=== PATIENT | female | born 1990 | race Caucasian/White ===

== ENCOUNTER 2017-08-16 09:43 | Emergency (ER) | payer SELFPAY ==
[2017-08-16 10:00] VITALS: BP 124/82
[2017-08-16] MEDS ORDERED: Lidocaine 1% 50 ML MDV INJECT ONE (11:20)
--- NOTE | 2017-08-16 13:58 | EDM.PDOC ---
ED HPI GENERAL MEDICAL PROBLEM - General Chief Complaint: Upper Extremity Injury/Pain Stated Complaint: HAND SWOLLEN Time Seen by Provider: 08/16/17 10:13 Source of Information: Reports: Patient, RN Notes Reviewed - History of Present Illness INITIAL COMMENTS - FREE TEXT/NARRATIVE: 26-year-old female comes in with area of swelling, discomfort, erythema dorsum of right hand. She states that she was doing some fencing about a week ago got a large sliver of wood that punctured across the dorsum of the right hand. Her did pull that out. They think they got it all but have no way of knowing for sure. The swelling never did completely go away. Now over the last few days the swelling is been getting worse, also increasing erythema and discomfort. 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 History - Tobacco Use Smoking Status *Q: Never Smoker - Caffeine Use Caffeine Use: Reports: Coffee, Energy Drinks, Soda, Tea - Recreational Drug Use Recreational Drug Use: No Review of Systems - Review of Systems Review Of Systems: See Below Constitutional: Denies: Chills, Fever Mouth/Throat: Reports: No Symptoms Respiratory: Denies: Shortness of Breath Cardiovascular: Denies: Chest Pain GI/Abdominal: Denies: Nausea, Vomiting Musculoskeletal: Reports: Other (pain, swelling, erythema dorsum of right hand) Neurological: Denies: Numbness, Tingling ED EXAM, GENERAL - Physical Exam Exam: See Below General Appearance: Alert, No Apparent Distress Head: Atraumatic Neck: Supple Respiratory/Chest: No Respiratory Distress Extremities: Redness (visit linear area of redness and swelling along with moderate tenderness across the dorsum of her right hand, length about 1 inch, about 1/2 inch away from the entrance wound that has now almost completely healed, no drainage at this time) Neurological: Alert, Oriented, No Motor/Sensory Deficits Skin Exam: Warm, Dry, Normal Color ED TRAUMA EXTREMITY PROCEDURES - I&D Site: dorsum of right hand Skin Prep: Providone-Iodine (Betadine) Local Anesthesia: Lidocaine: 1% Plain Area Incised With: 15 Blade Drainage: Bloody, Moderate Amount, Other (mostly bloody drainage but also there was a small amount of infected pus-looking material that did drain as well, no definite foreign body found. I did make a 2 cm laceration and did go down modera ) Course - Vital Signs Last Recorded V/S: Last Vital Signs Temp 98.1 F 08/16/17 09:57 Pulse 77 08/16/17 09:57 Resp BP 124/82 08/16/17 09:57 Pulse Ox 100 08/16/17 09:57 - Orders/Labs/Meds Orders: Active Orders 24 hr Category Date Time Status Hand Comp Min 3V Rt [CR] Stat Exams 08/16/17 10:32 Taken Meds: Medications Discontinued Medications Generic Name Dose Route Start Last Admin Trade Name Pattie PRN Reason Stop Dose Admin Lidocaine HCl 50 ml 08/16/17 11:20 08/16/17 14:00 Xylocaine 1% INJECT 08/16/17 11:21 50 ml ONETIME ONE Administration - Re-Assessments/Exams Free Text/Narrative Re-Assessment/Exam: 08/16/17 15:54 I have discussed with patient option of putting her on an antibiotic giving this a chance to get better. When questioning about possibility of retained foreign body she really is quite unsure. She states the swelling never did go away, even right after time of splinter removal. She would prefer that I do open that up and have a look. She has signed appropriate consent for incision, drainage, exploration for foreign body. We did give a dose of cephalexin prior to doing this. Patient tolerated procedure well. Departure - Departure Time of Disposition: 14:20 Disposition: Home, Self-Care 01 Condition: Fair Clinical Impression: Cellulitis Qualifiers: Site of cellulitis: extremity Site of cellulitis of extremity: upper extremity Laterality: right Qualified Code(s): L03.113 - Cellulitis of right upper limb - Discharge Information Prescriptions: Cephalexin 500 mg PO Q6HR #30 capsule Instructions: Cellulitis, Adult, [id number] Referrals: PCP,None [Primary Care Provider] - Forms: ED Department Discharge Additional Instructions: laceration care instructions, cephalexin 500 mg 4 times daily for 1 week or until gone, symptoms of infection should gradually resolve, have hand rechecked if symptoms worsening in any way - My Orders Last 24 Hours: My Active Orders 08/16/17 10:32 Hand Comp Min 3V Rt [CR] Stat - Assessment/Plan Last 24 Hours: My Active Orders 08/16/17 10:32 Hand Comp Min 3V Rt [CR] Stat
--- NOTE | 2017-08-17 10:27 | CR ---
Right hand: Four views of the right hand were obtained. Comparison: No previous study. Soft tissue swelling is identified. No opaque foreign object is appreciated. No fracture, dislocation or other bony abnormality is seen. Impression: 1. Soft tissue swelling. No opaque foreign object is seen. 2. No bony abnormality is identified. Diagnostic code #2
== END 2017-08-16 14:40 | disposition home or self-care (01) ==
LOC: JD.ED 09:43 → MERGE 09:43 → JD.ED 14:40
DX: L03.113 Cellulitis of right upper limb (principal)
CPT/HCPCS: 10060; 12001; 73130-26-RT; 73130-RT; 99283-25

== ENCOUNTER 2018-02-05 18:07 | Emergency (ER) | payer SELFPAY ==
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
[2018-02-05 18:53] VITALS: BP 123/90
--- NOTE | 2018-02-06 10:02 | CT ---
CT cervical spine Technique: Multiple axial sections were obtained from above C1 inferiorly to the bottom of T2. Reconstructed sagittal and coronal images were reviewed. Comparison: No prior cervical spine imaging. Findings: Slight areas of increased density seen within the thyroid gland. Vertebral body heights and disc spaces are maintained. No fracture is seen. No bony central or bony neural foraminal stenosis is seen. No abnormal subluxation is seen on the reconstructed sagittal images. Impression: 1. Areas of increased density within the thyroid gland. Thyroid ultrasound could be obtained to further evaluate. 2. Nothing acute is seen on CT study of the cervical spine. Diagnostic code #3 Agree with preliminary report issued by [facility] ([facility] preliminary report dictated on 02/05/18, 8:00 PM Central Time)
--- NOTE | 2018-02-06 10:02 | CR ---
Thoracic spine: AP and lateral views of the thoracic spine were obtained as well as a swimmer's view. Comparison: No prior thoracic spine study. Vertebral body heights and disc spaces are maintained. Pedicles are intact. Minimal scoliosis is noted. No discrete fracture or subluxation is appreciated. Impression: 1. Minimal scoliosis. 2. No additional abnormality is appreciated on three-view thoracic spine study. Diagnostic code #2
--- NOTE | 2018-02-06 10:02 | CR ---
Lumbar spine: AP and lateral views of the lumbar spine were obtained. Comparison: No previous study. Vertebral body heights and disc spaces are maintained. Pedicles as well as transverse and spinous processes are intact. No subluxation or fracture is seen. Sacroiliac joints are within normal limits. Impression: 1. No abnormality is seen on two-view lumbar spine study. Diagnostic code #1
== END 2018-02-05 19:15 | disposition home or self-care (01) ==
LOC: JD.ED 18:07
DX: M54.2 Cervicalgia (principal); M54.6 Pain in thoracic spine; V43.53XA Car driver injured in collision with pick-up truck in traffic accident, initial encounter; Y92.410 Unspecified street and highway as the place of occurrence of the external cause
CPT/HCPCS: 72070; 72070-26; 72100; 72100-26; 72126; 72126-26; 81001; 99284; 99285-25

== ENCOUNTER 2019-01-23 16:05 | Emergency (ER) | payer BC ==
[2019-01-23 16:18] VITALS: BP 116/80
[2019-01-23] MEDS ORDERED: Lidocaine 1% 10 ML MDV INJECT ONE (17:31)
[2019-01-23] MEDS ORDERED: Bupivacaine 0.5% 10 ML SDV INJECT ONE (18:08)
--- NOTE | 2019-01-23 18:08 | EDM.PDOC ---
<Gaurang Hernández - Last Filed: 01/23/19 18:54> ED HPI GENERAL MEDICAL PROBLEM - General Chief Complaint: Laceration Stated Complaint: L INDEX FINGER LAC Time Seen by Provider: 01/23/19 17:14 - Related Data Allergies Allergy/AdvReac Type Severity Reaction Status Date / Time No Known Allergies Allergy Verified 01/23/19 16:18 Home Meds: Home Meds . [No Known Home Meds] 02/05/18 [History] ED SKIN PROCEDURES - Laceration/Wound Repair Left Lateral Distal Digit - 2nd (Index) Lac/Wound length In cm: 5 (cm) Appearance: Subcutaneous, Linear, Mildly Contaminated Distal NVT: Neuro & Vascular Intact, No Tendon Injury Anesthetic Type: Local Local Anesthesia - Bupivicaine (Marcaine): 0.5% Plain Local Anesthetic Volume: Other (6 mL) Skin Prep: Providone-Iodine (Betadine), Sterile Drape Exploration/Debridement/Repair: Minimal Debridement, Other (Wound margin approximated) Closed with: Sutures Suture Size: 4-0 # of Sutures: 7 Suture Type: Nylon Sterile Dressing Applied: Nurse Tetanus Status Addressed: Yes Complications: No Progress/Comments: Laceration approximated 5 cm Lateral second digit of left hand. Wound irrigated with NS, sterilized using iodine, and anesthetized with digital block with 7 mL bupivicaine. Margins were approximated and seven 4.0 ethylon simple sutures were used to close the wound. Hemostasis was achieved. There was minimal blood lost and no complications. Course - Vital Signs Last Recorded V/S: Last Vital Signs Temp 98.3 F 01/23/19 16:16 Pulse 93 01/23/19 16:16 Resp 16 01/23/19 16:16 BP 116/80 01/23/19 16:16 Pulse Ox 99 01/23/19 16:16 - Orders/Labs/Meds Orders: Active Orders 24 hr Category Date Time Status Vaccines to be Administered [RC] PER UNIT ROUTINE Care 01/23/19 18:53 Active Fingers Second Digit Lt F1 [CR] Stat Exams 01/23/19 17:30 Taken Meds: Medications Discontinued Medications Generic Name Dose Route Start Last Admin Trade Name Freq PRN Reason Stop Dose Admin Bupivacaine HCl 10 ml 01/23/19 18:08 01/23/19 19:27 Sensorcaine-Mpf 0.5% INJECT 01/23/19 18:09 10 ml ONETIME ONE Administration Diphtheria/Tetanus/Acell Pertussis 0.5 ml 01/23/19 18:53 01/23/19 19:22 Adacel IM 01/23/19 18:54 Not Given .ONCE ONE Lidocaine HCl 10 ml 01/23/19 17:31 01/23/19 17:34 Xylocaine 1% INJECT 01/23/19 17:32 10 ml ONETIME ONE Administration Departure - Departure Disposition: Home, Self-Care 01 Clinical Impression: Laceration of left index finger Qualifiers: Encounter type: initial encounter Damage to nail status: without damage Foreign body presence: without foreign body Qualified Code(s): S61.211A - Laceration without foreign body of left index finger without damage to nail, initial encounter - Discharge Information Instructions: Laceration Care, Adult Referrals: PCP,None [Primary Care Provider] - Forms: ED Department Discharge Additional Instructions: Evaluation the emergency room today in regards to a deep flap laceration to your left index finger that occurred from the blade of a meat en. This did not result in any bony injury identified on x-ray. It also missed the tendons and nerves. Laceration was repaired under digital block with Marcaine 0.5%. 7 sutures were placed in total to close a 5 cm flap laceration. Initial treatment is a compression dressing that should remain in place for the next 2 days. She may remove the dressing and daily cleanse the wound with soap and water. Showering is okay however the wound should not be soaked under water until after the sutures are removed. Apply topical antibiotic such as bacitracin or Polysporin to the wound after cleanse and cover with a bandage to keep clean. Sutures will need to be removed in 10 days' time. May use Tylenol 650 mg every 4 hours as needed for pain relief as needed. Vaccination for tetanus, diphtheria , and pertussis was updated today and is good for the next 10 years. - My Orders Last 24 Hours: My Active Orders 01/23/19 17:30 Fingers Second Digit Lt F1 [CR] Stat 01/23/19 18:53 Vaccines to be Administered [RC] PER UNIT ROUTINE - Assessment/Plan Last 24 Hours: My Active Orders 01/23/19 17:30 Fingers Second Digit Lt F1 [CR] Stat 01/23/19 18:53 Vaccines to be Administered [RC] PER UNIT ROUTINE <Ra Ho - Last Filed: 01/23/19 19:26> ED HPI GENERAL MEDICAL PROBLEM - General Source of Information: Reports: Patient, Family (spouse) History Limitations: Reports: No Limitations - History of Present Illness INITIAL COMMENTS - FREE TEXT/NARRATIVE: 28-year-old female presents to the ED with an acute injury to her left index finger when she accidentally sliced the radial aspect of the distal phalanx involving distal phalanx and half of the middle phalanx on the edge of a meat en. This resulted in a 5 cm flap laceration on the volar aspect of the finger. It is mildly contaminating with food seasoning. Plan x-ray of the finger will be carried out and it will require suture repair under digital block Onset: Today Onset Date: 01/23/19 Onset Time: 15:40 Duration: Minutes: Location: Reports: Upper Extremity, Left (Injury to the distal and middle phalanx of the left index finger) Quality: Reports: Ache, Throbbing Severity: Moderate Improves with: Reports: None Worsens with: Reports: None Context: Reports: Trauma (She was using a meat chopper to prepare supper but she actually lacerated the index finger with the edge of the chopper versus a direct blow from the chopper. She has suffered a large flap laceration from the tip of the finger along the volar aspect of the finger proximally 3.5 cm in length. 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: Social & Family History - Tobacco Use Smoking Status *Q: Never Smoker Second Hand Smoke Exposure: No - Caffeine Use Caffeine Use: Reports: None - Recreational Drug Use Recreational Drug Use: No - Living Situation & Occupation Living situation: Reports: Occupation: Employed ED ROS GENERAL - Review of Systems Review Of Systems: See Below Constitutional: Reports: No Symptoms HEENT: Reports: No Symptoms Respiratory: Reports: No Symptoms Cardiovascular: Reports: No Symptoms Endocrine: Reports: No Symptoms GI/Abdominal: Reports: No Symptoms : Reports: No Symptoms Musculoskeletal: Reports: No Symptoms Skin: Reports: Other (Injury to the soft tissues of the volar aspect of the left index finger.) Neurological: Reports: No Symptoms Psychiatric: Reports: No Symptoms Hematologic/Lymphatic: Reports: No Symptoms Immunologic: Reports: No Symptoms ED EXAM, SKIN/RASH Exam: See Below Exam Limited By: No Limitations General Appearance: Alert, WD/WN, No Apparent Distress, Anxious, Mild Distress, Other (In moderate pain.) Extremities: Other (Examination was essentially limited to the left index finger. There is a large flap laceration extending from the nail fold on the radial aspect down over the distal and middle phalanx before curves towards the ulnar aspect of the finger. It is approximately 5 cm in length. Is contaminated by seasoning for food) Neurological: Alert, Oriented, CN II-XII Intact Psychiatric: Normal Affect, Normal Mood Skin: Warm, Dry, Normal Color, No Rash Course - Radiology Interpretation Free Text/Narrative:: 28-year-old female presents to the ED with an acute injury to her left index finger. She actually lacerated the volar aspect of the distal phalanx and middle phalanx on the sharp edge of a meat en. Clinically there is no neurovascular injury. In the tendons are intact. However this resulted in a large flap laceration approximately 3.5 cm in length over the radial aspect of the finger and curves mid phalanx to the ulnar aspect of the finger. X-ray of the finger will be done - Re-Assessments/Exams Free Text/Narrative Re-Assessment/Exam: 01/23/19 17:35: AP and lateral view of the left index finger reveals no bony injuries. On reinspection the lacerations approximate 5 cm in length. Will repeat BP be repaired under digital block by PA student . 01/23/19 18:40: The wound has been closed after irrigation using 7 4-0 nylon sutures. Wound approximation is very good. A compression dressing will be placed on the finger for the next 48 hours to make sure hematoma does not form underneath the flap laceration after that I will be cleansed daily with soap and water. Showering is okay. Then she will apply topical anabolic such as bacitracin or Polysporin to the wound daily and cover with a bandage. Sutures will need to be removed in 10 days' time Departure - Departure Time of Disposition: 19:12 Condition: Fair - Discharge Information *PRESCRIPTION DRUG MONITORING PROGRAM REVIEWED*: Not Applicable *COPY OF PRESCRIPTION DRUG MONITORING REPORT IN PATIENT ROCAEL: Not Applicable <Татьяна Polk - Last Filed: 01/23/19 22:32> ED HPI GENERAL MEDICAL PROBLEM - General Source of Information: Reports: Patient History Limitations: Reports: No Limitations - History of Present Illness Onset: Today Onset Date: 01/23/19 Onset Time: 16:30 Duration: Minutes: Location: Reports: Upper Extremity, Left Quality: Reports: Ache Severity: Mild Improves with: Reports: None Worsens with: Reports: None ED ROS GENERAL - Review of Systems Review Of Systems: See Below Constitutional: Reports: No Symptoms HEENT: Reports: No Symptoms Respiratory: Reports: No Symptoms Cardiovascular: Reports: No Symptoms Endocrine: Reports: No Symptoms GI/Abdominal: Reports: No Symptoms : Reports: No Symptoms Musculoskeletal: Reports: No Symptoms Skin: Reports: No Symptoms, Other (left index finger laceration) Neurological: Reports: No Symptoms Psychiatric: Reports: No Symptoms Hematologic/Lymphatic: Reports: No Symptoms Immunologic: Reports: No Symptoms
[2019-01-23] MEDS ORDERED: Diphtheria,Pertussis(Acell),Tetanus Vaccine 0.5 ML Syringe IM ONE (18:53)
--- NOTE | 2019-01-24 09:53 | CR ---
Left second finger: Two views of the left second finger were obtained. Comparison: No prior finger exam. Joint spaces are preserved. No fracture or other abnormality is seen. Impression: 1. No abnormality is appreciated on two-view left second finger study. Diagnostic code #1
== END 2019-01-23 19:20 | disposition home or self-care (01) ==
LOC: JD.ED 16:05
DX: S61.211A Laceration without foreign body of left index finger without damage to nail, initial encounter (principal); W26.8XXA Contact with other sharp object(s), not elsewhere classified, initial encounter
CPT/HCPCS: 12002; 73140; 99283; J2001; J3490

== ENCOUNTER 2019-08-02 06:57 | Inpatient (IN) | payer BC ==
[~2019-08-02 06:57] MED LIST: Bupivacaine 0.25% 10 ML SDV ONE
[2019-08-02] MEDS ORDERED: Nalbuphine 10 MG/1 ML Vial IVPUSH PRN (07:47)
[2019-08-02] MEDS ORDERED: Sodium Chloride 0.9% 10 ML Syringe FLUSH PRN (07:47)
[2019-08-02] MEDS ORDERED: Lidocaine 1% 50 ML MDV INJECT ONE (07:47)
[2019-08-02] MEDS ORDERED: Ondansetron 4 MG/2 ML SDV IVPUSH PRN ×2 (07:47→09:53)
[2019-08-02] MEDS ORDERED: Oxytocin/Lactated Ringers 10 UNIT/1,000 ML BAG IV SCH ×2 (08:00)
[2019-08-02] MEDS: Lactated Ringers 1,000 ML IV SCH ×3 (08:09→12:53)
[2019-08-02] MEDS ORDERED: ePHEDrine 50 MG/ML SDV IVPUSH PRN (09:53)
[2019-08-02] MEDS ORDERED: fentaNYL 100 MCG/2 ML SDV EPIDUR PRN (09:53)
--- NOTE | 2019-08-02 09:55 | PCM.PREANE ---
Preanesthetic Assessment - Anesthesia/Transfusion/Family Hx Anesthesia History: No Prior Anesthesia Family History of Anesthesia Reaction: No Transfusion History: No Prior Transfusion(s) Intubation History: Unknown - Physical Assessment NPO Status Date: 08/02/19 Vital Signs: Last Vital Signs Temp 36.3 C 08/02/19 07:48 Pulse 94 08/02/19 07:48 Resp 14 08/02/19 07:48 BP 121/69 08/02/19 07:48 Pulse Ox 96 08/02/19 07:48 Height: 1.7 m Weight: 123.377 kg ASA Class: 2 Mental Status: Alert & Oriented x3 - Lab Values: Laboratory Last Values WBC 9.74 K/mm3 (3.98-10.04) 08/02/19 07:05 RBC 4.13 M/mm3 (3.98-5.22) 08/02/19 07:05 Hgb 11.1 gm/L (11.2-15.7) L 08/02/19 07:05 Hct 35.1 % (34.1-44.9) 08/02/19 07:05 MCV 85.0 fl (79.4-94.8) 08/02/19 07:05 MCH 26.9 pg (25.6-32.2) 08/02/19 07:05 MCHC 31.6 g/dl (32.2-35.5) L 08/02/19 07:05 RDW Std Deviation 48.2 fL (36.4-46.3) H 08/02/19 07:05 Plt Count 262 K/mm3 (182-369) 08/02/19 07:05 MPV 10.0 fl (9.4-12.3) 08/02/19 07:05 All labs reviewed and noted and within acceptable ranges to proceed with epidural if desired. - Allergies Allergies/Adverse Reactions: Allergies Allergy/AdvReac Type Severity Reaction Status Date / Time No Known Allergies Allergy Verified 08/02/19 07:46 - Anesthesia Plan Pre-Op Medication Ordered: None - Acknowledgements Anesthesia Type Planned: Epidural Pt an Appropriate Candidate for the Planned Anesthesia: Yes Alternatives and Risks of Anesthesia Discussed w Pt/Guardian: Yes Pt/Guardian Understands and Agrees with Anesthesia Plan: Yes PreAnesthesia Questionnaire - Past Health History Medical/Surgical History: Denies Medical/Surgical History [employer] History: Reports: , Spontaneous - SUBSTANCE USE Smoking Status *Q: Unknown Ever Smoked Tobacco Use Within Last Twelve Months: Snuff/Dip Second Hand Smoke Exposure: No Recreational Drug Use History: No - HOME MEDS Home Medications: Home Meds Acetaminophen [Tylenol] 500 mg PO Q4H PRN 07/30/19 [History] Ferrous Sulfate [Iron] 325 mg PO DAILY 07/30/19 [History] Pnv No.122/Iron/Folic Acid [ Multi Tablet] 1 each PO DAILY 07/30/19 [ History] - CURRENT (IN HOUSE) MEDS Current Meds: Current Medications Lactated Ringer's (Ringers, Lactated) 1,000 mls @ 100 mls/hr IV ASDIRECTED CIRO Last Admin: 08/02/19 08:09 Dose: 100 mls/hr Oxytocin/Lactated Ringer's (Pitocin In Lr 10 Units/1,000 Ml) 10 unit in 1,000 mls @ 12 mls/hr IV TITRATE CIRO; Protocol Last Titration: 08/02/19 09:30 Dose: 6 munits/min, 36 mls/hr Oxytocin/Lactated Ringer's (Pitocin In Lr 10 Units/1,000 Ml) 10 unit in 1,000 mls @ 100 mls/hr IV .CONTINUOUS CIRO Nalbuphine HCl (Nubain) 10 mg IVPUSH Q2H PRN PRN Reason: Pain Ondansetron HCl (Zofran) 4 mg IVPUSH Q4H PRN PRN Reason: Nausea/Vomiting Sodium Chloride (Saline Flush) 10 ml FLUSH ASDIRECTED PRN PRN Reason: Keep Vein Open Discontinued Medications Lidocaine HCl (Xylocaine 1%) 20 ml INJECT ONETIME ONE Stop: 08/02/19 07:48
[2019-08-02] MEDS ORDERED: Bupivacaine/fentaNYL/NS 100 ML Bag EPIDUR SCH (10:00)
--- NOTE | 2019-08-02 14:42 | PCM.SN ---
- Free Text/Narrative Note: Stage I - Patient presented for induction of labor. Progressed nicely to complete with epidural anesthesia. AROM and pitocin. Stage II - of viable male, weight 9#9oz, APGARS 9/9 at 1416. Head delivered in controlled manner over intact perineum. Body and shoulders atraumatically. Positive cry. Cord clamped and cut. Stage III - of intact placenta, 3vc, no laceration. EBL 150
[2019-08-02] MEDS ORDERED: Hydrocortisone Acetate 25 MG Supp RECTAL PRN (14:54)
[2019-08-02] MEDS ORDERED: Lanolin 100% Cream 7 GM Tube TOP PRN (14:54)
[2019-08-02] MEDS ORDERED: Docusate Sodium 100 MG Cap PO PRN (14:54)
[2019-08-02] MEDS ORDERED: Ibuprofen 600 MG Tab PO PRN (14:54)
[2019-08-02] MEDS ORDERED: Witch Hazel Medicated Pads 40/Jar TOP PRN (14:54)
[2019-08-03] MEDS: Acetaminophen 325 MG Tab PO PRN ×2 (02:51→07:58)
[2019-08-03 08:31] VITALS: BP 123/77; PULSE 84
--- NOTE | 2019-08-03 12:57 | PCM48HPAN ---
Post Anesthesia Note - EVALUATION WITHIN 48HRS OF ANESTHETIC Vital Signs in Normal Range: Yes Patient Participated in Evaluation: Yes Respiratory Function Stable: Yes Airway Patent: Yes Cardiovascular Function Stable: Yes Hydration Status Stable: Yes Pain Control Satisfactory: Yes Nausea and Vomiting Control Satisfactory: Yes Mental Status Recovered: Yes Vital Signs: Last Vital Signs Temp 36.8 C 08/03/19 08:29 Pulse 84 08/03/19 08:29 Resp 20 08/03/19 08:29 BP 123/77 08/03/19 08:29 Pulse Ox 96 08/03/19 08:29 - COMMENTS/OBSERVATIONS Free Text/Narrative:: no anesthesia complications noted
[2019-08-03] MEDS ORDERED: Diphtheria,Pertussis(Acell),Tetanus Vaccine 0.5 ML Syringe IM ONE (14:51)
[2019-08-03] MEDS ORDERED: Diphtheria,Pertussis(Acell),Tetanus Vaccine 0.5 ML SDV IM ONE (15:15)
== END 2019-08-03 16:05 | disposition still patient (30) | DRG 560 ==
LOC: JD.OB 06:57 → OBSVTOIN 14:16 → JD.OB 14:17
PROVIDERS: ADMIT Obstetrics & Gynecology; ATTEND Obstetrics & Gynecology
PROC: 10E0XZZ Delivery of Products of Conception, External Approach (ICD-10-PCS; principal; 2019-08-02)
PROC: 10907ZC Drainage of Amniotic Fluid, Therapeutic from Products of Conception, Via Natural or Artificial Opening (ICD-10-PCS; 2019-08-02)
PROC: 3E033VJ Introduction of Other Hormone into Peripheral Vein, Percutaneous Approach (ICD-10-PCS; 2019-08-02)
DX: O48.0 Post-term pregnancy (principal); Z3A.40 40 weeks gestation of pregnancy; Z37.0 Single live birth; Z23 Encounter for immunization
CPT/HCPCS: 01967; 36415; 51702; 59025; 59409; 85027; 90471; 90715; A9270-GY; J2590; J3010; J3490; J7120